=== PATIENT | female | born 1940 | race Caucasian/White ===

== ENCOUNTER → 2017-04-06 | Outpatient (CLI) | payer OTHER ==
[~2017-04-06] MED LIST: ACTOS PO; ALBUTEROL17 GM INH; ALLERGY MEDICAT25 M1; ALPRAZOLAM PO; ALPRAZOLAM0.25 MG PO; AZITHROMYCIN500 MG PO; BACTRIM DS TABL1 TA1 PO; CYMBALTA PO; DULERA 100 MCG/13 GM IH; FORADIL12 MCG NEB; GLIPIZIDE5 MG/BOTTL PO; GLUCOTROL PO; GLUCOTROL XL10 MG PO; HCTZ PO; HYDROCHLOROTHIA25 MG PO; JANUVIA PO; K-DUR20 ME1 PO; KEFLEX500 MG PO; LEVEMIR FL100 UNIT/1; LIPITOR PO; LIPITOR20 MG PO; LISINOPRIL PO; LOPRESSOR PO; PAIN RELIEF EX500 MG PO; POTASSIUM; PREDNISONE10 MG/DOSE PO; PROTONIX PO; SINGULAIR PO; SPIRIVA18 MCG INH; STOMACH MED; TOPROL XL PO; TOPROL XL50 MG PO; TUDORZA PRESS400 MCG IH; VYTORIN 10-20 M1 TAB PO; VYTORIN 10/40 M1 TAB PO; XYZAL5 MG PO; ZITHROMAX PO; ZOFRAN ODT4 MG PO; ZOLOFT PO; ZOLOFT50 MG PO; [UNRECOGNIZED DRUG - OTHER] PO
--- NOTE | ~2017-04-06 | CT137 ---
[facility] A [facility] RADIOLOGY TEXT RESULTS PATIENT: MANOJ LIN LOCATION: [facility] : 40 UNIT #: [id number] AGE: [address]: Keron Alanis MD SEX: F ORDER DR: [id number] [address] [address] [id number] O MR#: [id number] Acc #: [id number] NAME: MANOJ LIN : 1940 SEX: F STUDY DATE/TIME: 04/06/2017 13:35 UNIT: [facility] ROOM: STUDY DESCRIPTION: CT Lung Screening annual Attending Physician: Keron Alanis M.D. Referring Physician: Keron Alanis M.D. Ordering Physician: Keron Alanis M.D. Primary Care Physician: Keron Alanis M.D. MEDICAL IMAGING REPORT This report is preliminary unless electronic signature is present. EXAM CT lung cancer screening INDICATIONS Lung cancer screening. [id number] smoking history. TECHNIQUE Unenhanced low-dose CT of the chest performed per lung cancer screening protocol. CTDI is 2.96 mGy. Total DLP 114 mGy/cm. This CT exam was performed with one or more of the following radiation dose reduction techniques: automatic exposure control, adjustment of mA and/or kV according to patient size, and iterative reconstruction. COMPARISON STUDIES 02/29/2016. FINDINGS There is linear scarring in the lingula. No suspicious pulmonary nodule. No adenopathy. Atherosclerotic calcification in the thoracic aorta. Stable benign right adrenal adenoma. No acute findings in the included upper abdomen. No aggressive appearing bone lesion. IMPRESSION 1. No suspicious pulmonary nodules. 2. Other findings detailed above. Lung RADS category 1, negative. Per the ACR Lung RADS recommendation, suggest patient continue with annual low-dose lung cancer screening. [facility] A [facility] RADIOLOGY TEXT RESULTS PATIENT: MANOJ LIN LOCATION: [facility] : 40 UNIT #: [id number] AGE: [address]: Keorn Alanis MD SEX: F ORDER DR: Dictated by... Coy Eaton M.D. THIS IS AN ELECTRONICALLY VERIFIED REPORT Coy Eaton M.D. at 04/10/2017 3:30 PM EED/pcl TD: 04/07/2017 01:25 JOB #: [id number] MEDICAL IMAGING REPORT Page 1 of 1
== END | disposition home or self-care (01) ==
LOC: SCT 13:22
DX: Z87.891 Personal history of nicotine dependence (principal)
CPT/HCPCS: G0297